=== PATIENT | male | born 1980 | race Caucasian/White ===

== ENCOUNTER → 2022-05-28 | Outpatient (CLI) | payer MEDICAID, MEDICARE, OTHER, SELFPAY | LOC: M LAB 13:38 | PROVIDERS: ATTEND Family Medicine | DX: F11.20 Opioid dependence, uncomplicated (principal) ==

== ENCOUNTER 2022-06-24 12:03 | Emergency (ER) | payer OTHER ==
[~2022-06-24] VITALS: Ht 177.8 cm; Wt 84.1 kg
[2022-06-24] MEDS ORDERED: OMEP40CA4 PO (12:12)
[2022-06-24 13:05] LABS: RSV AMPLIFICATION NEGATIVE (NEGATIVE)
[2022-06-24] MEDS ORDERED: PSEUDOEPHEDRINE 30 MG TAB PO STA (14:09)
[2022-06-24] MEDS ORDERED: ONDANSETRON 4MG ORAL DISINTEGRATING TAB PO ONE (14:10)
[2022-06-24] MEDS ORDERED: KETOROLAC 60MG 2ML VIAL IM ONE (14:10)
[2022-06-24] MEDS ORDERED: BENZONATATE 100MG CAPSULE PO ONE (14:10)
[2022-06-24] MEDS ORDERED: BENZ200C70 PO (14:50)
[2022-06-24] MEDS ORDERED: MUCI1TAB16 PO (14:50)
[2022-06-24] MEDS ORDERED: PSEU120T19 PO (14:50)
[2022-06-24] MEDS ORDERED: NAPR-837 PO (14:50)
[2022-06-24 14:55] VITALS: BP 141/98
== END 2022-06-24 15:07 | disposition home or self-care (01) ==
LOC: M ED 12:03
DX: J01.90 Acute sinusitis, unspecified (principal); R05.9 Cough, unspecified; F17.200 Nicotine dependence, unspecified, uncomplicated
CPT/HCPCS: 71046; 87631; 96372; 99283; J1885

== ENCOUNTER 2022-12-02 11:53 | Emergency (ER) | payer OTHER ==
[~2022-12-02] VITALS: Ht 177.8 cm; Wt 84.7 kg
[~2022-12-02 11:53] MED LIST: BENZ200C70 PO; MUCI1TAB16 PO; NAPR-837 PO; OMEP40CA4 PO; PSEU120T19 PO
[2022-12-02] MEDS ORDERED: OMEP40CA5 (12:04)
[2022-12-02] MEDS ORDERED: diphenhydrAMINE 50MG/ML VIAL IV STA (12:40)
[2022-12-02] MEDS ORDERED: METOCLOPRAMIDE INJ 10MG/2ML VIAL IV ONE (12:40)
[2022-12-02] MEDS ORDERED: NS 1,000 ML IV ONE (12:40)
[2022-12-02 13:04] LABS: BASO % 0.4 % (0.0-1.0); EOS # 0.1 10^3/uL (0.0-0.5); EOS % 0.7 % (0.0-3.0); HEMATOCRIT 46.5 % (42.0-52.0); HEMOGLOBIN 15.3 g/dl (13.5-17.5); LYMPH # 1.3 10^3/uL (1.5-5.0); LYMPH % 14.5 % (24.0-44.0); MEAN CORPUSCULAR HEMOGLOBIN 30.6 pg (27.0-33.0); MEAN CORPUSCULAR HGB CONC 32.9 g/dl (32.0-36.5); MONO # 0.6 10^3/uL (0.0-0.8); MONO % 6.1 % (2.0-8.0); NEUTROPHILS # 7.1 10^3/uL (1.5-8.5); PLATELET COUNT, AUTOMATED 240 10^3/uL (150-450); WHITE BLOOD COUNT 9.1 10^3/uL (4.0-10.0)
[2022-12-02 13:24] LABS: LIPASE 28 U/L (12-53)
[2022-12-02 13:26] LABS: ALKALINE PHOSPHATASE 30 U/L (46-116); ALT/SGPT 18 U/L (7.0-40); AST/SGOT 14 U/L (<34); BILIRUBIN,DIRECT 0.2 MG/DL (<0.4); BILIRUBIN,TOTAL 0.7 MG/DL (0.3-1.2); BLOOD UREA NITROGEN 14 MG/DL (9-23); CALCIUM LEVEL 9.4 MG/DL (8.5-10.1); CARBON DIOXIDE LEVEL 27 MMOL/L (20-31); CHLORIDE LEVEL 106 MMOL/L (98-107); CREATININE FOR GFR 0.76 MG/DL (0.70-1.30); GLOMERULAR FILTRATION RATE > 60.0 (>60); GLUCOSE, FASTING 87 MG/DL (60-100); POTASSIUM SERUM 4.2 MMOL/L (3.5-5.1); SODIUM LEVEL 139 MMOL/L (136-145); TOTAL PROTEIN 6.8 G/DL (5.7-8.2)
[2022-12-02] MEDS ORDERED: CARA1TAB6 PO (14:33)
[2022-12-02 14:49] VITALS: BP 140/83
== END 2022-12-02 14:56 | disposition home or self-care (01) ==
LOC: M ED 11:53
DX: G43.909 Migraine, unspecified, not intractable, without status migrainosus (principal); F17.200 Nicotine dependence, unspecified, uncomplicated; F14.10 Cocaine abuse, uncomplicated; Z82.49 Family history of ischemic heart disease and other diseases of the circulatory system
CPT/HCPCS: 70450; 80048; 80076; 83690; 85025; 93005; 96361; 96374; 96375; 99284; J1200; J2765

== ENCOUNTER 2023-01-15 00:49 | Emergency (ER) | payer OTHER ==
[~2023-01-15] VITALS: Ht 177.8 cm; Wt 83.5 kg
[~2023-01-15 00:49] MED LIST changes: +CARA1TAB6 PO; +OMEP40CA5
[2023-01-15 00:50] VITALS: BP 130/94
== END 2023-01-15 04:50 | disposition left against medical advice (07) ==
LOC: M ED 00:49
DX: Z53.21 Procedure and treatment not carried out due to patient leaving prior to being seen by health care provider (principal)

== ENCOUNTER 2023-03-18 08:19 | Emergency (ER) | payer OTHER ==
[~2023-03-18] VITALS: Ht 177.8 cm; Wt 93.5 kg
[2023-03-18] MEDS ORDERED: SERT25TA21 (08:24)
[2023-03-18] MEDS ORDERED: TOPI25TA10 (08:24)
[2023-03-18] MEDS ORDERED: ISOVUE-370 76% 100ML VIAL As Ordered ONE (08:43)
[2023-03-18 08:49] LABS: BASO # 0.1 10^3/uL (0.0-0.2); BASO % 0.5 % (0.0-1.0); EOS # 0.2 10^3/uL (0.0-0.5); EOS % 1.8 % (0.0-3.0); HEMATOCRIT 41.3 % (42.0-52.0); LYMPH # 1.7 10^3/uL (1.5-5.0); LYMPH % 16.5 % (24.0-44.0); MEAN CORPUSCULAR HEMOGLOBIN 30.8 pg (27.0-33.0); MEAN CORPUSCULAR HGB CONC 33.9 g/dl (32.0-36.5); MONO # 0.6 10^3/uL (0.0-0.8); MONO % 5.9 % (2.0-8.0); NEUTROPHILS # 7.6 10^3/uL (1.5-8.5); PLATELET COUNT, AUTOMATED 221 10^3/uL (150-450); RED BLOOD COUNT 4.54 10^6/uL (4.30-6.10); WHITE BLOOD COUNT 10.1 10^3/uL (4.0-10.0)
[2023-03-18 09:18] LABS: ETHYL ALCOHOL (ETHANOL) 0.005 % (0.000-0.010)
[2023-03-18 09:20] LABS: ALBUMIN 3.6 G/DL (3.2-5.2); BILIRUBIN,DIRECT 0.1 MG/DL (<0.4); BILIRUBIN,TOTAL 0.3 MG/DL (0.3-1.2); TOTAL PROTEIN 5.8 G/DL (5.7-8.2)
[2023-03-18 09:55] LABS: AMPHETAMINES LEVEL URINE NEGATIVE (NEGATIVE); BARBITURATES URINE NEGATIVE (NEGATIVE); BENZODIAZEPINES URINE NEGATIVE (NEGATIVE); CANNABINOIDS URINE NEGATIVE (NEGATIVE); METHADONE URINE NEGATIVE (NEGATIVE); OPIATES URINE NEGATIVE (NEGATIVE); PHENCYCLIDINE URINE NEGATIVE (NEGATIVE)
[2023-03-18 09:59] LABS: COCAINE METABOLITE URINE POSITIVE (NEGATIVE)
[2023-03-18 10:45] VITALS: O2SAT 97
[2023-03-18 10:53] VITALS: BP 145/89; TEMP 96.8
== END 2023-03-18 11:19 | disposition home or self-care (01) ==
LOC: EDBD 08:19 → M ED 08:19
DX: S20.219A Contusion of unspecified front wall of thorax, initial encounter (principal); V89.2XXA Person injured in unspecified motor-vehicle accident, traffic, initial encounter; M47.892 Other spondylosis, cervical region; Z79.899 Other long term (current) drug therapy
CPT/HCPCS: 70450; 71260; 72125; 74177; 80047; 80076; 80307; 82077; 85025; 93041; 99285; Q9967